=== PATIENT | female | born 1980 | race Caucasian/White ===

== ENCOUNTER 2016-08-28 08:52 | Emergency (ER) | payer SELFPAY ==
[2016-08-28 10:04] LABS: Basophils % (Auto) 0.7 % (0.0-1.8); Eosinophils % (Auto) 0.5 % (0.0-4.3); Hematocrit 38.4 % (30.3-42.9); Hemoglobin 13.2 gm/dl (10.1-14.3); Mean Corpuscular HGB Conc 34 % (30-34); Mean Corpuscular Hemoglobin 27 pg (28-32); Mean Corpuscular Volume 80 fl (79-97); Platelet Count 277 K/mm3 (140-440); Red Blood Count 4.83 M/mm3 (3.65-5.03); Red Cell Distribution Width 12.8 % (13.2-15.2); White Blood Count 8.1 K/mm3 (4.5-11.0)
[2016-08-28 10:06] LABS: Bilirubin,Urine NEG (Negative); Blood,Urine NEG (Negative); Ketones,Urine NEG (Negative); Leukocyte Esterase,Urine NEG (Negative); Mucus,Urine FEW /HPF; Nitrite,Urine NEG (Negative); Protein,Urine <15 mg/dL mg/dL (Negative); Urobilinogen,Urine < 2.0 mg/dL (<2.0); WBC,Urine < 1.0 /HPF (0.0-6.0)
[2016-08-28 10:10] LABS: Anion Gap 16 mmol/L; Blood Urea Nitrogen 6 mg/dL (7-17); Calcium 9.1 mg/dL (8.4-10.2); Carbon Dioxide 24 mmol/L (22-30); Chloride 100.7 mmol/L (98-107); Glucose 85 mg/dL (65-100); Potassium 4.3 mmol/L (3.6-5.0); Sodium 136 mmol/L (137-145)
--- NOTE | 2016-08-28 12:41 | Emergency Department Report ---
ED Female HPI - General Chief complaint: Urogenital-Female Stated complaint: 8 WKS /BLOOD IN URINE Time Seen by Provider: 08/28/16 10:35 Source: patient Mode of arrival: Ambulatory Limitations: Language Barrier - History of Present Illness Initial comments: 36-year-old female presents with complaint of one week of intermittent scant vaginal bleeding. Patient is awake alert and oriented 3 not in acute distress denies any abdominal pain. States she is only complaining of minor amount of scant vaginal bleeding and discharge. Denies any nausea vomiting fever or chills. States she is currently but does not know exactly how far along she is. States she does not currently have [facility] doctor and has not yet received attention for this . Last menstrual period was 06/30/16. Patient speaks some Salvadorean, her is present speaks fluent Salvadorean and Yoruba. MD Complaint: vaginal bleeding Onset/Timin -: week(s) Consistency: intermittent Associated Symptoms: abdominal pain - Related Data Sexually active: Yes : 2 Para: 1 Previous Rx's Medication Instructions Recorded Last Taken Type Pnv Cmb#21/Iron/Folic Acid 1 each PO QDAY #60 tablet 08/28/16 Unknown Rx [ Complete Caplet] Allergies Allergy/AdvReac Type Severity Reaction Status Date / Time No Known Allergies Allergy Unverified 08/28/16 09:07 ED Review of Systems ROS: Stated complaint: 8 WKS /BLOOD IN URINE Other details as noted in HPI Constitutional: denies: chills, fever Eyes: denies: eye pain, eye discharge, vision change ENT: denies: ear pain, throat pain Respiratory: denies: cough, shortness of breath, wheezing Cardiovascular: denies: chest pain, palpitations Endocrine: no symptoms reported Gastrointestinal: denies: abdominal pain, nausea, diarrhea Genitourinary: denies: urgency, dysuria, discharge Musculoskeletal: denies: back pain, joint swelling, arthralgia Skin: denies: rash, lesions Neurological: denies: headache, weakness, paresthesias Psychiatric: denies: anxiety, depression Hematological/Lymphatic: denies: easy bleeding, easy bruising ED Past Medical Hx - Past Medical History Previous Medical History?: Yes Additional medical history: vaginal delivery x 2 - Surgical History Past Surgical History?: No - Social History Smoking Status: Never Smoker Substance Use Type: Non Opiate Pain - Medications Home Medications: Home Medications Medication Instructions Recorded Confirmed Last Taken Type Pnv Cmb#21/Iron/Folic Acid 1 each PO QDAY #60 tablet 08/28/16 Unknown Rx [ Complete Caplet] ED Physical Exam - General Limitations: Language Barrier General appearance: alert, in no apparent distress - Head Head exam: Present: atraumatic, normocephalic - Eye Eye exam: Present: normal appearance, PERRL, EOMI - ENT ENT exam: Present: mucous membranes moist - Neck Neck exam: Present: normal inspection - Respiratory Respiratory exam: Present: normal lung sounds bilaterally. Absent: respiratory distress - Cardiovascular Cardiovascular Exam: Present: regular rate, normal rhythm. Absent: systolic murmur, diastolic murmur, rubs, gallop - GI/Abdominal GI/Abdominal exam: Present: soft, normal bowel sounds - External exam: Present: normal external exam Speculum exam: Present: vaginal bleeding (tiny amount of vaginal bleeding) Bi-manual exam: Present: normal bi-manual exam - Extremities Exam Extremities exam: Present: normal inspection, full ROM - Back Exam Back exam: Present: normal inspection - Neurological Exam Neurological exam: Present: alert, oriented X3, CN II-XII intact, normal gait - Psychiatric Psychiatric exam: Present: normal affect, normal mood - Skin Skin exam: Present: warm, dry, intact, normal color. Absent: rash ED Course Vital Signs 08/28/16 09:08 Temperature 97.5 F L Pulse Rate 74 Respiratory 20 Rate Blood Pressure 119/73 O2 Sat by Pulse 100 Oximetry ED Medical Decision Making - Lab Data Result diagrams: 08/28/16 09:39 08/28/16 09:39 - Medical Decision Making A/P: Threatened , with vaginal bleeding 1-discussed case with Dr. Swenson and discussed ultrasound and blood work results , will give outpatient follow-up, no necessity for acute OB intervention at this time. Ultrasound shows IUP 2-case discussed with Dr. Ortega before discharge. I explained to patient that she should not engage in any sexual activity at this time and to have pelvic rest. 3- vitamins 4-H&H stable, patient is Rh+, AB + on type and screen no clinical indication for RhoGAM Critical care attestation.: If time is entered above; I have spent that time in minutes in the direct care of this critically ill patient, excluding procedure time. ED Disposition Clinical Impression: Threatened Disposition: DISCHARGED TO HOME OR SELFCARE Is pt being admited?: No Does the pt Need Aspirin: No Condition: Stable Instructions: Threatened Miscarriage (ED), (ED) Prescriptions: Pnv Cmb#21/Iron/Folic Acid [ Complete Caplet] 1 each PO QDAY #60 tablet Referrals: [facility] [Provider Group] - 3-5 Days MARTA SWENSON MD [Staff Physician] - 3-5 Days Forms: Accompanied Note, Work/School Release Form(ED) Time of Disposition: 13:51
--- NOTE | 2016-08-28 13:06 | Ultrasound Report ---
Pelvic and transvaginal sonography: History: with vaginal bleeding. Findings: Uterus measures 11.5 x 0.4 x 8.8 cm. Single intrauterine gestation is noted. CRL of free dose 41.8 mm corresponding to 11 weeks of gestation. heart rate 176 per minute. Small subchorionic bleed. Right ovary 2.2 x 2.3 x 3 cm. Cyst in the right ovary measures 1.4 cm. Left ovary not visualized. Impression: Single viable intrauterine gestation. Small subchorionic bleed.
[2016-08-28 14:15] VITALS: BP 130/76
== END 2016-08-28 14:14 | disposition home or self-care (01) ==
LOC: ED 08:52
DX: O20.0 Threatened abortion (principal); Z3A.01 Less than 8 weeks gestation of pregnancy
CPT/HCPCS: 36415; 76801; 76817; 80048; 81001; 84702; 85025; 86850; 86900; 86901

== ENCOUNTER 2017-03-16 10:46 | Inpatient (IN) | payer MEDICAID ==
[2017-03-16] MEDS ORDERED: Fluarix Quad 2017-2018(36 MOS+) IM ONE (12:00)
[2017-03-16] MEDS ORDERED: ePHEDrine SULFATE IV PRN (12:08)
[2017-03-16] MEDS ORDERED: NARCAN 0.4 MG/1 ML IV PRN (12:08)
[2017-03-16] MEDS ORDERED: STADOL IV PRN (12:08)
[2017-03-16] MEDS ORDERED: ZOFRAN IV PRN (12:08)
[2017-03-16] MEDS ORDERED: XYLOCAINE 2% INFILTRATI ONE ×2 (12:08→18:02)
[2017-03-16] MEDS ORDERED: BRETHINE IVP PRN (12:08)
[2017-03-16] MEDS ORDERED: MINERAL OIL PO PRN (12:08)
[2017-03-16] MEDS ORDERED: BRETHINE SUB-Q PRN (12:08)
--- NOTE | 2017-03-16 12:14 | History and Physical Report ---
History of Present Illness Date of examination: 03/16/17 Date of admission: 03/16/17 10:46 Chief complaint: Sent from office for labor augmentation due to early labor and equivocal NST. History of present illness: Late entry to care, course complicated by a abnormal 1hour GTT , followed by a normal 3hour GTT. There was a lapse in care due to communication and language barrier. Past History Past Medical History: no pertinent history Past Surgical History: no surgical history Family/Genetic History: none Social history: no significant social history, - Obstetrical History Expected Date of Delivery: 03/16/17 Actual Gestation: 40 Week(s) 0 Day(s) : 2 Para: 1 Hx # Term Pregnancies: 1 Number of Living Children: 1 #1 Gender: Male year: 2[age][birth year] Birthweight: 3.175 kg Method of Delivery: Vaginal Medications and Allergies Allergies Allergy/AdvReac Type Severity Reaction Status Date / Time No Known Allergies Allergy Unverified 08/28/16 09:07 Home Medications Medication Instructions Recorded Confirmed Last Taken Type 21/Iron Fu/Folic Acid 1 each PO QDAY #60 tablet 08/28/16 Unknown Rx [ Complete Caplet] Review of Systems All systems: negative - Vital Signs Vital signs: Vital Signs Temp Pulse Resp BP 98.8 F 111 H 16 107/68 03/16/17 11:15 03/16/17 11:15 03/16/17 11:15 03/16/17 11:15 Temp Pulse Resp BP Pulse Ox 98.8 F 111 H 16 107/68 03/16/17 11:15 03/16/17 11:18 03/16/17 11:15 03/16/17 11:18 - Physical Exam Breasts: Positive: normal Cardiovascular: Regular rate Lungs: Positive: Clear to auscultation Abdomen: Positive: normal appearance, soft, normal bowel sounds Genitourinary (Female): Positive: normal external genitalia, normal perenium Vagina: Positive: normal moisture Uterus: Positive: enlarged - Obstetrical FHR: category 2 FHR comments: FHR: 146, min to mod varability, -accels, +repetitive early and mild varabile decels, CTX q 1.5mins Uterine Contraction Monitor Mode: External Cervical Dilatation: 4.5 (Large amount of clear fluid upon AROM at 1205) Cervical Effacement Percentage: 70 station: -2 Uterine Contraction Frequency (min): 1.5 Uterine Contraction Pattern: Regular Uterine Tone Measurement Phase: Resting Uterine Contraction Intensity: Moderate Results All other labs normal. Assessment and Plan A: IUP @ 40 Weeks Category II Tracing Active Labor GBS Negative P: Admit to L&D per routine orders AROM
[2017-03-16 12:50] LABS: Hematocrit 37.7 % (30.3-42.9); Hemoglobin 12.5 gm/dl (10.1-14.3); Mean Corpuscular HGB Conc 33 % (30-34); Mean Corpuscular Hemoglobin 26 pg (28-32); Mean Corpuscular Volume 79 fl (79-97); Platelet Count 279 K/mm3 (140-440); Red Blood Count 4.79 M/mm3 (3.65-5.03); Red Cell Distribution Width 14.8 % (13.2-15.2); White Blood Count 12.5 K/mm3 (4.5-11.0)
[2017-03-16] MEDS ORDERED: PITOCin/NS 30 UNIT/500ML 30 UNITS/500 ML BAG IV SCH ×2 (13:00)
[2017-03-16] MEDS ORDERED: PITOCin/NS 20 UNIT/1000ML DRIP 20 UNITS/1,000 ML BAG IV SCH (13:00)
[2017-03-16] MEDS ORDERED: LACTATED RINGERS 1,000 ML IV SCH (13:00)
[2017-03-16] MEDS ORDERED: NARCAN 2 MG/2 ML ONE (17:55)
[2017-03-16] MEDS ORDERED: NORCO 5/325 PO PRN (18:21)
[2017-03-16] MEDS ORDERED: DULCOLAX PR PRN (18:21)
[2017-03-16] MEDS ORDERED: MILK OF MAGNESIA PO PRN (18:21)
[2017-03-16] MEDS ORDERED: LANSINOH TP PRN (18:21)
[2017-03-16] MEDS ORDERED: TUCKS PAD TP PRN (18:21)
[2017-03-16] MEDS ORDERED: BENADRYL PO PRN (18:21)
--- NOTE | 2017-03-16 18:32 | Procedure Note ---
OB Delivery Note - Delivery Date of Delivery: 03/16/17 (1750) Surgeon: ARIC WITT Estimated blood loss: other (250) - Vaginal Delivery presentation: vertex Delivery position: OA Intrapartum events: mult.variable deceleratio Delivery induction: none Delivery augmentation: rupture of membranes Delivery monitor: external FHT, external uterine Route of delivery: Delivery placenta: spontaneous Delivery cord: nuchal cord Episiotomy: none Delivery laceration: 1st degree Delivery repair: vicryl Anesthesia: local Delivery comments: of a live 8'2 male over a 1st degree perineal laceration under IV pain control with Apgars of 4 and 8 at 1750 on 03/16/2017. Tight nuchal cord x 1, manually reduced with delivery of infant. Tight delivery of shoulders; no additional maneuvers necessary. Cord clamped and cut by AVI Witt, and infant placed on warmer due to poor tone and color at . Spontaneous delivery of placenta complete and intact with Rodríguez side presenting at 1807. Fundus is firm and midline. Lochia scant. Perineal laceration repaired with 2-[address]-1 under local 2% Lidocaine. Cord blood gasses collected x 2. Placenta discarded. - Infant A at 1 minute: 4 at 5 minutes: 8 Gender: Male (8'2)
[2017-03-16 18:51] LABS: ISTAT Base Excess -8; ISTAT DEVICE 0; ISTAT HCO3 20.6; ISTAT PCO2 59.2 (35-45); ISTAT PH 7.148 (7.35-7.45); ISTAT PO2 26 (80-105); ISTAT SO2 32; ISTAT TCO2 22
[2017-03-16 18:51] LABS: ISTAT Base Excess -5; ISTAT DEVICE 0; ISTAT HCO3 23.2; ISTAT PCO2 62.4 (35-45); ISTAT PH 7.179 (7.35-7.45); ISTAT PO2 19 (80-105); ISTAT SO2 19; ISTAT TCO2 25
[2017-03-16] MEDS ORDERED: SODIUM CHLORIDE FLUSH SYRINGE 10 ML IV SCH (19:00)
[2017-03-16] MEDS: MOTRIN PO SCH (21:59)
[2017-03-16] MEDS: COLACE PO SCH (22:00)
[2017-03-17] MEDS: MOTRIN PO SCH ×3 (04:22→18:20)
--- NOTE | 2017-03-17 06:05 | Progress Note ---
Assessment and Plan A: PP Day #1 Stable [place] Concerns (not urinating) P: Follow Routine Orders Alert Nurse and Nursery that baby hasn't voided Educated parents that 24 hours are given for baby to void before interventions are taken D/C home in the AM RTO in 6 Weeks Subjective - Subjective Date of service: 03/17/17 Interval history: Late entry to care, course complicated by a abnormal 1hour GTT , followed by a normal 3hour GTT. There was a lapse in care due to communication and language barrier. Patient reports: appetite normal, voiding normally, pain well controlled, flatus , ambulating normally : other (Parents very concerned: state that baby has not urinated since ), bottle feeding (and ) Objective - Vital Signs Latest vital signs: Vital Signs Temp Pulse Resp BP BP 03/17/17 01:50 98.7 F 83 20 102/63 03/16/17 20:33 99.1 F 108 H 18 118/71 03/16/17 19:30 102 H 120/69 03/16/17 19:15 105 H 123/70 03/16/17 19:00 103 H 113/66 03/16/17 18:45 108 H 115/65 03/16/17 18:30 102 H 111/63 03/16/17 15:41 19 03/16/17 11:18 111 H 107/68 03/16/17 11:15 98.8 F 111 H 16 107/68 Intake and Output 03/16/17 03/16/17 03/17/17 14:59 22:59 06:59 Intake Total 180 120 Output Total 1300 800 Balance -1120 -680 Intake: Intake, Free Water 180 120 Output: Urine 1300 800 Void 1300 800 Other: Total, Output Amount 500 400 Weight 63.503 kg Estimated Blood Loss 250 Patient Weight 03/17/17 06:59 Weight 63.503 kg - Exam Breasts: Present: normal Cardiovascular: Present: Regular rate Lungs: Present: Clear to auscultation, Normal air movement Abdomen: Present: normal appearance, soft, normal bowel sounds Uterus: Present: normal, firm, fundal height below umbilicus Extremities: Present: normal - Labs Labs: Abnormal lab results 03/16/17 03/16/17 03/16/17 Range/Units 12:05 18:46 18:50 WBC 12.5 H (4.5-11.0) K/mm3 MCH 26 L (28-32) pg POC ABG pH 7.148 L 7.179 L (7.35-7.45) POC ABG pCO2 59.2 H 62.4 H (35-45) POC ABG pO2 26 L 19 L (80-105)
--- NOTE | 2017-03-17 06:07 | Discharge Summary ---
Providers - Providers Date of Admission: 03/16/17 10:46 Date of discharge: 03/18/17 Attending physician: MICHELLE TOBIN MD Primary care physician: MICHELLE TOBIN MD Hospitalization Reason for admission: active labor Delivery: Episiotomy: none Laceration: 1st degree Other procedures: none complications: none Discharge diagnosis: IUP at term delivered [place] baby: male Condition at discharge: Good Disposition: DC-01 TO HOME OR SELFCARE Plan - Provider Discharge Summary Activity: routine, no sex for 6 weeks, no heavy lifting 4 weeks, no strenuous exercise Diet: routine Instructions: routine Additional instructions: [] Smoking cessation referral if applicable(refer to patient education folder for contact #) [] Refer to [facility] Booklet Call your doctor immediately for: * Fever > 100.5 * Heavy vaginal bleeding ( >1 pad per hour) * Severe persistent headache * Shortness of breath * Reddened, hot, painful area to leg or breast * Drainage or odor from incision. * Keep incision clean and dry at all times and follow doctor's instructions regarding bathing/showering - Follow up plan Follow up: MICHELLE TOBIN MD [Primary Care Provider] - 6 Weeks
[2017-03-17 06:53] LABS: Hematocrit 30.9 % (30.3-42.9); Hemoglobin 10.7 gm/dl (10.1-14.3)
[2017-03-17] MEDS ORDERED: PRENATAL VITAMIN PO SCH (10:00)
[2017-03-17] MEDS: COLACE PO SCH ×2 (11:00→21:53)
[2017-03-18] MEDS: MOTRIN PO SCH ×2 (00:06→05:28)
[2017-03-18] MEDS ORDERED: Fluarix Quad 2017-2018(36 MOS+) IM ONE (18:00)
[2017-03-18 18:13] VITALS: BP 104/60
== END 2017-03-18 18:26 | disposition home or self-care (01) | DRG 775 ==
LOC: LD 10:46 → OB 20:04
PROVIDERS: ADMIT Obstetrics & Gynecology; ATTEND Obstetrics & Gynecology
PROC: 10E0XZZ Delivery of Products of Conception, External Approach (ICD-10-PCS; principal; 2017-03-16)
PROC: 0HQ9XZZ Repair Perineum Skin, External Approach (ICD-10-PCS; 2017-03-16)
PROC: 10907ZC Drainage of Amniotic Fluid, Therapeutic from Products of Conception, Via Natural or Artificial Opening (ICD-10-PCS; 2017-03-16)
PROC: 3E0234Z Introduction of Serum, Toxoid and Vaccine into Muscle, Percutaneous Approach (ICD-10-PCS; 2017-03-16)
PROC: 4A033R1 Measurement of Arterial Saturation, Peripheral, Percutaneous Approach (ICD-10-PCS; 2017-03-16)
DX: O76 Abnormality in fetal heart rate and rhythm complicating labor and delivery (principal); Z3A.40 40 weeks gestation of pregnancy; Z37.0 Single live birth; O69.1XX0 Labor and delivery complicated by cord around neck, with compression, not applicable or unspecified; O70.0 First degree perineal laceration during delivery; Z23 Encounter for immunization
CPT/HCPCS: 36415; 82803; 85014; 85018; 85027; 86592; 86850; 86900; 86901; 90686; 99211; G0463; J0595; J2310; J2590; J7120